=== PATIENT | male | born 1975 | race African-American/Black ===

== ENCOUNTER 2017-05-04 05:07 | Inpatient (IN) | payer BC ==
[2017-05-04 08:11] LABS: Lactic Acid - Sepsis 1.3 mmol/L (0.5-2.2)
[2017-05-04 08:23] LABS: #Lymphocytes 0.7 thou/uL (1.20-3.40); #Monocytes 0.1 thou/uL (0.11-0.59); #Neutrophils 8.5 thou/uL (1.40-6.50); %Basophils 0.1 % (0.0-1.0); %Eosinophils 0.1 % (0.0-10.0); %Lymphocytes 7.6 % (21.0-51.0); %Monocytes 1.4 % (0.0-10.0); Mean Platelet Volume 9.8 fL (7.4-10.4); Red Blood Cell (RBC) Count 4.82 mill/uL (4.70-6.10); White Blood Cell (WBC) Count 9.3 thou/uL (4.8-10.8)
[2017-05-04 08:49] LABS: Chloride 101 mmol/L (98-107)
[2017-05-04 08:50] LABS: Calcium 10.3 mg/dL (7.8-10.44)
[2017-05-04 08:52] LABS: Anion Gap 14 mmol/L (10-20); Carbon Dioxide 27 mmol/L (22-29)
[2017-05-04 08:53] LABS: Calc. Creatinine Clearance 0 mL/min (70-130); Estimated GFR-MDRD 85
[2017-05-04 08:54] LABS: BUN (Urea Nitrogen) 13 mg/dL (8.9-20.6)
[2017-05-04] MEDS ORDERED: Loperamide HCl 2 MG CAP PO PRN (10:11)
[2017-05-04] MEDS ORDERED: Diabetic Tussin 200 MG/10 ML UDCUP PO PRN (10:11)
[2017-05-04] MEDS ORDERED: Ondansetron ODT 4 MG TAB PO PRN (10:11)
[2017-05-04] MEDS ORDERED: Eucerin (Mineral Oil/Petrolatum,White) 30 gm Jar TOP PRN (10:11)
[2017-05-04] MEDS ORDERED: Loratadine 10 MG TAB PO PRN (10:11)
[2017-05-04] MEDS ORDERED: Milk Of Magnesia 30 ML UDCUP PO PRN (10:11)
[2017-05-04] MEDS ORDERED: HYDROcodone/Acetaminophen 5/325 mg Tablet PO PRN (10:11)
[2017-05-04] MEDS ORDERED: Sodium Chloride 0.65% Nasal 44 ML BOT EA NARE PRN (10:11)
[2017-05-04] MEDS ORDERED: Artificial Tears 18 DROP/0.9 ML EA EYE PRN (10:11)
[2017-05-04] MEDS ORDERED: Acetaminophen 325 MG TAB PO PRN (10:11)
[2017-05-04] MEDS ORDERED: Zolpidem Tartrate 5 MG TAB PO PRN (10:11)
[2017-05-04] MEDS ORDERED: Senokot 8.6 MG TAB PO PRN (10:11)
[2017-05-04] MEDS ORDERED: Chloraseptic Spray 180 ml Bottle PO PRN (10:11)
[2017-05-04] MEDS ORDERED: hydrALAZINE 20 MG/ML VIAL SLOW IVP PRN (10:11)
[2017-05-04] MEDS ORDERED: Ondansetron HCl/PF 4 MG/2 ML Vial IVP PRN (10:11)
[2017-05-04] MEDS ORDERED: Mag-Al 1200 mg/1200 mg/30 ML UDCUP PO PRN (10:11)
[2017-05-04 10:16] VITALS: BMI 36.2
[2017-05-04] MEDS: Dexamethasone 4 mg/ml Vial SLOW IVP SCH ×2 (11:46→18:05)
[2017-05-04] MEDS: Clindamycin/D5W 600 MG in Premix Bag 1 BAG IVPB SCH ×2 (11:46→18:04)
--- NOTE | 2017-05-04 12:00 | HP ---
PRIMARY CARE PHYSICIAN: Dr. Ramires in [place]. REASON FOR ADMISSION: Dental abscess with submental inflammation. HISTORY OF PRESENT ILLNESS: A 42-year-old -Malaysian male with a history of hypertension and dyslipidemia who presented to [facility] with complaints of jaw pain. The patient reports that he had teeth pulled out on Friday. Subsequently, he was feeling soreness in his mouth. On Friday, he noticed swelling on his jaw, but he was told that it is expected and he was instructed to use warm compresses which he was doing by himself at home and he was taking pain medication, ibuprofen. The patient reports that before falling out teeth, he was given antibiotic course for dental abscess which was improved with amoxicillin and subsequently patient was scheduled for tooth extraction by dentist. On Friday and Friday, patient noticed more swelling over submental area and he was feeling tightness underneath of chin and swelling and pain and he was having sore feeling and that is why he went to [facility] [facility] for evaluation. Patient reports that after [facility] [facility] treatment, he is feeling a little bit better. Over there, he was given 600 mg clindamycin, 10 mg Decadron and 800 mg ibuprofen. The patient had a soft tissue CT scan which showed periodontal abscess around roots of multiple teeth and swelling around left mandible. Patient's pain is now well controlled. At this point, we are admitting this patient in the hospital for further evaluation and treatment. PAST MEDICAL HISTORY: Hypertension and dyslipidemia. PAST SURGICAL HISTORY: Tooth extraction, which was done on 05/01/2017. PAST PSYCHIATRIC HISTORY: Reviewed and negative. SOCIAL HISTORY: Patient is . He lives at home with family. No history of tobacco, alcohol or illicit drug abuse. FAMILY HISTORY: No strong family history of premature coronary artery disease, stroke or cancer. ALLERGIES: CIPRO tablet. CURRENT HOME MEDICATIONS: Amlodipine 5 mg p.o. daily and lisinopril 20 mg p.o. daily. ADDITIONAL INFORMATION: Patient was febrile, 99.5 at [facility] and he was given clindamycin 600 mg, Decadron 10 mg, and ibuprofen 800 mg. REVIEW OF SYSTEM: All review of system reviewed and negative except as mention in HPI. General: No fever, chills Eye: No eye pain or discharge ENT: No ear pain, no ear discharge Respi: No cough, no chest pain, no dyspnea CVS: No angina, no PND GI: No diarrhoea, constipation, no ernestina : No hematuria, no UTI symptoms Neuro: No headache, or weakness Psych: No anxiety or depression Hematology: No lymph node enlargement Skin: No skin rash, no cellulitis PHYSICAL EXAMINATION: VITAL SIGNS: On arrival to our emergency room, blood pressure 179/109, pulse 95 , respiratory rate 17, temperature 98.4, saturation 97% on room air, weight 96.6 kilograms. GENERAL: Patient is currently alert, oriented, no acute distress. HEAD: Normocephalic, atraumatic. EYES: Pupils round, reactive to light. Extraocular muscle intact. ENT: Oropharynx within normal limits. Moist mucous membrane, no oral lesions, no pharyngeal erythema, no exudate. The patient does have left lower jaw pain and swelling. The patient has submental swelling and there is no drainage in oral cavity. NECK: Supple, no JVD, no thyromegaly, no carotid bruits, no lymph nodes. LUNGS: Clear to auscultation without any rhonchi or rales. CARDIAC: S1, S2 regular without any murmur. ABDOMEN: Soft, bowel sounds present, nontender, nondistended. No organomegaly , no mass, no suprapubic tenderness. BACK: Examination unremarkable, no CVA tenderness. EXTREMITIES: Upper extremity; passive movements of all joints are normal. Lower extremities: No edema. Good peripheral pulsation. SKIN: No skin rash. HEMATOLOGICAL SYSTEM: No lymphadenopathy. PSYCHIATRIC: Normal affect. SIGNIFICANT LABORATORY DATA AND IMAGING DATA: 1. CBC: WBC 9.3, hemoglobin 15.1, platelet 248. 2. Lactic acid 1.3. 3. BMP: Sodium 137, potassium 4.5, chloride 101, carbon dioxide 27, anion gap 14, BUN 13, creatinine 1.13, glucose 151, calcium 10.3. 4. Blood test done at [facility] also completely reviewed. Over there, his BMP was normal. CBC was normal. 5. CT soft tissue neck showed inflammation and fluid track in the left submandibular region, medial to left mandible. Multiple tooth extraction in the mandible, multiple periodontal abscess involving posterior maxillary teeth, mucosal thickening in both maxillary sinus, right nasoseptal deviation. ASSESSMENT AND PLAN/IMPRESSION: 1. Multiple periodontal abscesses with submental inflammation. At this point, patient will be admitted to medical floor. He will be given clindamycin 600 mg IV q.6 hourly. Oral surgeon, Dr. Katz will be consulted. We will also continue Decadron 4 mg IV q.8 hourly and we will monitor clinical response. Oral care will be given. Further decisions will defer to oral surgeon. Most likely this patient should get improved with IV antibiotic therapy. 2. Hypertension. We will continue patient's blood pressure medication of amlodipine 5 mg p.o. daily and lisinopril 20 mg p.o. daily. 3. Dyslipidemia. Patient is not on any specific treatment at this point and we will defer that treatment as an outpatient basis upon followup visit with primary care physician. 4. Deep venous thrombosis prophylaxis, Lovenox 40 mg subcu daily. 5. Gastrointestinal prophylaxis, Pepcid 20 mg p.o. b.i.d. 6. Code status: The patient is FULL CODE. The patient's is surrogate decision maker. Disposition plan based on clinical course. We are expecting patient's stay in hospital more than 2 midnights. Plan of care discussed with the patient and family member at bedside. DIONNA
--- NOTE | 2017-05-04 15:56 | CON ---
DATE OF CONSULTATION: 05/04/2017 REASON FOR CONSULTATION: Submental abscess. HISTORY OF PRESENT ILLNESS: This is a 42-year-old black male approximately 2 days status post extrac tion of two mandibular teeth by a general dentist in [place], [place]. He noted to have over the next 24 hours increasing pain, swelling, and difficulty swallowing, difficulty turning his neck. He was s een at [facility] last night where a CT scan was done, which showed a possible developm ent of left submandibular, submental abscess. He had been given IV clindamycin over the last 12 hour s and reported greatly decreased swelling, pain, and no more difficulty swallowing over the last 12 h ours. He has no complaints at this time of pain and difficulty swallowing, numbness or difficulty op ening. PAST MEDICAL HISTORY: Hypertension. ALLERGIES: No known drug allergies. MEDICATIONS: The patient is currently on IV clindamycin 900 mg. The patient does take a blood press ure medication at home but he does not know what it is. PAST SURGICAL HISTORY: No surgeries in the past besides recent tooth removal 2 days ago in [place]. SOCIAL HISTORY: The patient works on [employer]. He denies alcohol, tobacco or drug use. PHYSICAL EXAMINATION: The patient's vital signs, temperature is 97.7, pulse is 82, respirations 16, O2 sat is 97% room air, blood pressure is 150/84. The patient is awake, alert, and oriented x3. He is in no acute distress. His pupils are equal, round, and reactive to light and accommodation. His oral opening is good. His oropharynx is clear. Floor of mouth is soft and nontender and supple. Th ere is no swelling in the floor of the mouth and left submandibular submental area. There is a sligh t bit of tenderness may be a slight bit of edema, but very minimal. The patient has no paresthesia o r numbness. There is no palpable lymphadenopathy in the submandibular, submental area. A CT scan of the neck from [facility] was reviewed and does show a recent extraction site tooth #18 a nd 19 area with a lingual cortical perforation, possibly some edema tracking from the lingual cortica l plate of the submandibular, submental area; however, there is no definable drainable abscess or flu id collection in the area. ASSESSMENT: Pleasant 42-year-old male status post recent tooth extraction with left submandibular, s ubmental cellulitis, edema. The patient appears to be responding well to antibiotics and steroids. PLAN: I recommend watch patient in house for another 12-24 hours and continue IV antibiotics, clinda mycin 600 mg IV q.6 hours. If the patient is feeling much better in 12-24 hours, okay for discharge home. We would recommend a 1 week course of clindamycin 300 mg p.o. q.6 hours for 7 days upon discha rge home.
[2017-05-04] MEDS: Famotidine 20 MG TAB PO SCH (20:58)
[2017-05-05] MEDS: Clindamycin/D5W 600 MG in Premix Bag 1 BAG IVPB SCH ×3 (00:09→11:14)
[2017-05-05] MEDS: Dexamethasone 4 mg/ml Vial SLOW IVP SCH ×2 (01:20→11:09)
[2017-05-05 07:42] VITALS: TEMP 97.9
[2017-05-05] MEDS: Famotidine 20 MG TAB PO SCH (08:14)
[2017-05-05] MEDS ORDERED: Enoxaparin Sodium 40 MG/0.4 ML SYRINGE SC SCH (09:00)
[2017-05-05] MEDS ORDERED: Saccharomyces boulardii 250 MG CAP PO SCH (09:00)
[2017-05-05] MEDS ORDERED: Amlodipine 5 MG TAB PO SCH (09:00)
[2017-05-05] MEDS ORDERED: Lisinopril 20 MG TAB PO SCH (09:00)
--- NOTE | 2017-05-05 10:00 | PDOC.PN ---
- Subjective Encounter Start Date: 05/05/17 Encounter Start Time: 09:20 -: old records requested/rev Patient seen and examined. No new complaints. No overnight events - Objective Resuscitation Status: Resuscitation Status FULL:Full Resuscitation MAR Reviewed: Yes Vital Signs & Weight: Vital Signs (12 hours) Temp Pulse Resp BP Pulse Ox 05/05/17 08:14 75 05/05/17 08:00 97.9 F 75 20 96 05/05/17 07:42 97.9 F 75 16 135/79 96 05/05/17 04:00 97.8 F 72 18 134/89 96 05/05/17 00:00 98.0 F 76 16 129/80 98 I&O: 05/04/17 05/05/17 05/06/17 06:59 06:59 06:59 Intake Total 1540 Output Total 0 Balance 1540 Result Diagrams: 05/04/17 07:42 05/04/17 08:31 Phys Exam - Physical Examination Constitutional: NAD HEENT: PERRLA, moist MMs, sclera anicteric Neck: no JVD, supple Respiratory: no wheezing, no rales, no rhonchi Cardiovascular: RRR, no significant murmur, no rub Gastrointestinal: soft, non-tender, no distention, positive bowel sounds Musculoskeletal: no edema, pulses present Neurological: non-focal, normal sensation, moves all 4 limbs Lymphatic: no nodes Psychiatric: normal affect, A&O x 3 Skin: no rash, normal turgor Dx/Plan (1) Dental abscess Code(s): K04.7 - PERIAPICAL ABSCESS WITHOUT SINUS Status: Acute (2) Submental space infection Code(s): K12.2 - CELLULITIS AND ABSCESS OF MOUTH Status: Acute (3) Hypertension Code(s): I10 - ESSENTIAL (PRIMARY) HYPERTENSION Status: Chronic (4) Obesity (BMI 30-39.9) Code(s): E66.9 - OBESITY, UNSPECIFIED Status: Chronic - Plan cont current plan of care, continue antibiotics * pt has significant improvement * will continue oral clindamycin on discharge * will discharge later today * medication reviewed as below * symptomatic treatment. Review of Systems - Review of Systems ENT: negative: Ear Pain, Ear Discharge, Nose Pain, Nose Discharge, Nose Congestion, Mouth Pain, Mouth Swelling, Throat Pain, Throat Swelling, Other Respiratory: negative: Cough, Dry, Shortness of Breath, Hemoptysis, SOB with Excertion, Pleuritic Pain, Sputum, Wheezing Cardiovascular: negative: Chest Pain, Palpitations, Orthopnea, Paroxysmal Noc. Dyspnea, Edema, Light Headedness, Other Gastrointestinal: negative: Nausea, Vomiting, Abdominal Pain, Diarrhea, Constipation, Melena, Hematochezia, Other Genitourinary: negative: Dysuria, Frequency, Incontinence, Hematuria, Retention , Other Musculoskeletal: negative: Neck Pain, Shoulder Pain, Arm Pain, Back Pain, Hand Pain, Leg Pain, Foot Pain, Other Skin: negative: Rash, Lesions, Stephon, Bruising, Other - Medications/Allergies Allergies/Adverse Reactions: Allergies Allergy/AdvReac Type Severity Reaction Status Date / Time ciprofloxacin [From Cipro] Allergy Verified 05/04/17 10:06 Medications: Current Medications Acetaminophen (Tylenol) 650 mg PO Q4H PRN PRN Reason: Headache/Fever or Pain Hydrocodone Bitart/Acetaminophen ([place] 5/325) 1 tab PO Q4H PRN PRN Reason: Moderate Pain (4-6) Al Hydroxide/Mg Hydroxide (Maalox) 30 ml PO Q6H PRN PRN Reason: Heartburn or Indigestion Amlodipine Besylate (Norvasc) 5 mg PO DAILY [facility] Last Admin: 05/05/17 08:14 Dose: Not Given Artificial Tears (Tears Naturale) 0 drop EA EYE PRN PRN PRN Reason: Dry Eyes Dexamethasone (Decadron) 4 mg SLOW IVP Q8H [facility] Last Admin: 05/05/17 01:20 Dose: 4 mg Enoxaparin Sodium (Lovenox) 40 mg SC 0900 [facility] Last Admin: 05/05/17 08:15 Dose: Not Given Famotidine (Pepcid) 20 mg PO BID [facility] Last Admin: 05/05/17 08:14 Dose: 20 mg Guaifenesin (Robitussin Sf) 200 mg PO Q4H PRN PRN Reason: Cough Hydralazine HCl (Apresoline) 10 mg SLOW IVP Q4H PRN PRN Reason: Systolic BP > 180 Clindamycin Phosphate/Dextrose (600 mg/ Device) 50 mls @ 100 mls/hr IVPB Q6HR [facility] Last Admin: 05/05/17 05:09 Dose: 50 mls Lisinopril (Zestril) 20 mg PO DAILY [facility] Last Admin: 05/05/17 08:13 Dose: Not Given Loperamide HCl (Imodium) 2 mg PO PRN PRN PRN Reason: Diarrhea/Loose Stools Loratadine (Claritin) 10 mg PO DAILYPRN PRN PRN Reason: Sinus Symptoms Magnesium Hydroxide (Milk Of Magnesium) 30 ml PO DAILYPRN PRN PRN Reason: Constipation Mineral Oil/White Petrolatum (Eucerin Cream) 0 gm TOP BIDPRN PRN PRN Reason: Dry Skin Ondansetron HCl (Zofran Odt) 4 mg PO Q6H PRN PRN Reason: Nausea/Vomiting Ondansetron HCl (Zofran) 4 mg IVP Q6H PRN PRN Reason: Nausea/Vomiting Phenol (Chloraseptic [place] 180 Ml Bot) 0 ml PO PRN PRN PRN Reason: Sore Throat Saccharomyces Boulardii (Florastor) 250 mg PO DAILY [facility] Last Admin: 05/05/17 08:13 Dose: 250 mg Senna (Senokot) 2 tab PO HSPRN PRN PRN Reason: Constipation Sodium Chloride ([place] Nasal [place] 0.65%) 0 ml EA NARE QIDPRN PRN PRN Reason: Nasal Congestion Sodium Chloride (Flush - Normal Saline) 10 ml IVF PRN PRN PRN Reason: Saline Flush Last Admin: 05/05/17 05:09 Dose: 10 ml Zolpidem Tartrate (Ambien) 5 mg PO HSPRN PRN PRN Reason: Insomnia
--- NOTE | 2017-05-05 10:45 | DIS ---
DATE OF ADMISSION: 05/04/2017 DATE OF DISCHARGE: 05/05/2017 PRIMARY CARE PHYSICIAN: Beau Ramires M.D. DISCHARGE DISPOSITION: Home. PRIMARY DISCHARGE DIAGNOSIS: Dental abscess and submental space infection. SECONDARY DISCHARGE DIAGNOSES: Hypertension and obesity with body mass index 36. PRIMARY PROCEDURE/OPERATION: None. RADIOLOGICAL INVESTIGATION: Patient had CT neck soft tissue at [facility] which showed d ental abscess and submental space inflammation. SIGNIFICANT LABORATORY DATA: WBC 9.3, hemoglobin 15.1, platelet 248. BMP; sodium 137, potassium 4.5 , BUN 13, creatinine 1.13, calcium 10.3, and lactic acid 1.3. DISCHARGE MEDICATIONS: Clindamycin 600 mg p.o. q.6 hourly for 7 days, Florastor 250 mg p.o. b.i.d. f or 7 days, amlodipine 5 mg p.o. daily, lisinopril 20 mg p.o. daily. CONTRAINDICATIONS: None. CODE STATUS: FULL CODE. INPATIENT CONSULTANTS: Dr. Sterling Sethi was consulted while in hospital and he recommended only cli ndamycin therapy upon discharge. ALLERGIES: CIPROFLOXACIN. DISCHARGE PLAN: Post hospital, patient will follow up with primary care physician and primary dentis t in 1 week. HOSPITAL COURSE: A 42-year-old male who had recently dental work. He has dental abscess and he was given amoxicillin and subsequently patient underwent tooth extraction. After tooth extraction, patidelphine nt was having swelling underneath of his mandible and chin, it was bothering him and that is why he w ent to [facility] where they did CT of facial bone, soft tissue and that confirmed multiple dental abscess and submental space inflammation. Patient was given clindamycin an d Decadron there and subsequently he was transferred to our hospital for further evaluation and treat ment. While in hospital, we continued with IV clindamycin and Decadron. Oral surgeon, Dr. Katz s aw this patient and he recommended to continue clindamycin upon discharge. With this therapy while in hospital, patient had significant improvement in his swelling as well as p ain. At this point, we are changing antibiotic to orally for another 7 days and he will follow up wi th his dentist and primary care physician in 1 week. The patient is seen and examined at bedside today. Please see my progress note from today for furthe r details.
[2017-05-05 12:26] VITALS: BP 117/79
== END 2017-05-05 12:50 | disposition home or self-care (01) | DRG 158 ==
LOC: ERS 05:07 → T4-B 09:52
PROVIDERS: ADMIT Internal Medicine; ATTEND Internal Medicine
DX: K04.7 Periapical abscess without sinus (principal); K12.2 Cellulitis and abscess of mouth; I10 Essential (primary) hypertension; E78.5 Hyperlipidemia, unspecified; E66.9 Obesity, unspecified; Z68.36 Body mass index [BMI] 36.0-36.9, adult
CPT/HCPCS: 36415; 80048; 83605; 85025; 87040; 99285; A4216; J1100; J1650; J3490